=== PATIENT | female | born 1985 | race American Indian/Alaskan Native ===

== ENCOUNTER 2017-12-22 06:50 | Day surgery (SDC) | payer BC, OTHER ==
[~2017-12-22 06:50] MED LIST: MARCAINE-EPI 0.25%-1:200,000 INFILTRATI ONE
[2017-12-22] MEDS ORDERED: DIPRIVAN 10 MG/ML IV ONE (07:20)
[2017-12-22] MEDS ORDERED: DECADRON ONE (07:20)
[2017-12-22] MEDS ORDERED: DILAUDID ONE ×3 (07:20→12:11)
[2017-12-22] MEDS ORDERED: ZOFRAN ONE (07:20)
[2017-12-22] MEDS ORDERED: XYLOCAINE MPF 2% ONE (07:20)
[2017-12-22] MEDS ORDERED: NACL BACTERIOSTATIC INFILTRATI ONE (07:31)
--- NOTE | 2017-12-22 07:35 | Anesthesia Day of Surgery ---
Anesthesia Day of Surgery - Day of Surgery Patient Examined: Yes Patient H&P Reviewed: Yes Patient is NPO: Yes
--- NOTE | 2017-12-22 07:35 | Anesthesia Consultation ---
Anesthesia Consult and Med Hx Date of service: 12/22/17 - Airway Anesthetic Teeth Evaluation: Good ROM Head & Neck: Adequate Mental/Hyoid Distance: Adequate Mallampati Class: Class II Intubation Access Assessment: Good - Pulmonary Exam CTA: Yes - Cardiac Exam Cardiac Exam: No Murmur - Pre-Operative Health Status ASA Pre-Surgery Classification: ASA1, ASA2 Proposed Anesthetic Plan: General - Pulmonary Hx Asthma: Yes (RESCUE INHALER) - Central Nervous System Hx Psychiatric Problems: No - Other Systems Hx Alcohol Use: Yes ([facility]) Hx Substance Use: No
[2017-12-22 07:58] LABS: Basophils % (Auto) 0.7 % (0.0-1.8); Eosinophils # (Auto) 0.1 K/mm3 (0.0-0.4); Eosinophils % (Auto) 1.3 % (0.0-4.3); Hematocrit 42.5 % (30.3-42.9); Hemoglobin 13.9 gm/dl (10.1-14.3); Lymphocytes # (Auto) 1.5 K/mm3 (1.2-5.4); Lymphocytes % (Auto) 27.4 % (13.4-35.0); Mean Corpuscular HGB Conc 33 % (30-34); Mean Corpuscular Hemoglobin 26 pg (28-32); Mean Corpuscular Volume 80 fl (79-97); Monocytes # (Auto) 0.4 K/mm3 (0.0-0.8); Platelet Count 234 K/mm3 (140-440); Red Blood Count 5.31 M/mm3 (3.65-5.03); Red Cell Distribution Width 14.9 % (13.2-15.2)
[2017-12-22] MEDS ORDERED: VERSED IV NR (08:00)
[2017-12-22] MEDS ORDERED: ANCEF/STERILE WATER 2 GM/20 ML IV NR (08:00)
[2017-12-22] MEDS ORDERED: LACTATED RINGERS 1,000 ML IV SCH (08:00)
[2017-12-22] MEDS ORDERED: PEPCID PO NR (08:00)
[2017-12-22] MEDS ORDERED: DILAUDID IV PRN (08:00)
[2017-12-22] MEDS ORDERED: ADRENALIN ONE (08:18)
[2017-12-22] MEDS ORDERED: MARCAINE 0.25% INFILTRATI ONE (08:18)
[2017-12-22] MEDS ORDERED: MARCAINE-EPI 0.25%-1:200,000 INFILTRATI ONE (08:18)
[2017-12-22] MEDS ORDERED: XYLOCAINE 1% 20 mL ONE (08:18)
[2017-12-22] MEDS ORDERED: ZEMURON IV ONE (10:00)
[2017-12-22] MEDS ORDERED: NACL 0.9% 1000 ML 1,000 ML ONE (14:10)
[2017-12-22] MEDS ORDERED: PERCOCET 5/325 PO SCH (15:36)
--- NOTE | 2017-12-22 15:36 | Post Anesthesia Evaluation ---
- Post Anesthesia Evaluation Patient Participated: Yes Airway Patent: Yes Stable Respiratory Function: Yes Nausea/Vomiting: No Temp > 96.8F: Yes Pain Manageable: Yes Adequeate Hydration: Yes Anesthesia Complications: No Block Receding Appropriately: Not Applicable Patient on Ventilator: No
[2017-12-22 17:58] VITALS: BP 121/75
--- NOTE | 2017-12-22 18:34 | Operative Report ---
SERVICE: Plastic Surgery PREOPERATIVE DIAGNOSES: 1. Macromastia. 2. Lipodystrophy. 3. Encounter for cosmetic. POSTOPERATIVE DIAGNOSES: 1. Macromastia. 2. Lipodystrophy. 3. Encounter for cosmetic. PROCEDURES: 1. Bilateral reduction mammoplasty. 2. Abdominoplasty. SURGEON: Fermin Nixon M.D. STUDIO SET UP WORKER: Jono Batres CSA FINDINGS: 720 gm removed from the right breast, 680 gm removed from the left breast. DESCRIPTION OF PROCEDURE: The patient was brought to the operating room and placed on the table in supine position. Following administration of general anesthesia, bilateral breasts were prepped with Betadine solution and draped in the usual sterile manner as was the abdomen. Modified Romero pattern skin markings were incised with a scalpel, deepened through subcutaneous fat and breast tissue using the electrocautery. Inferior dermal pedicle was de-epithelialized. Breast tissue was resected. Skin flaps were elevated in standard manner as was fashioning of an inferior central mound pedicle. Hemostasis was controlled using the electrocautery. Breast tissue was sent to pathology as specimen. Closure was performed over 10 mm NAZARIO drains using interrupted and running subcuticular 2-0 Monocryl sutures. Mastisol, Steri-Strips, and sterile dressings were applied. Attention was then directed to the abdomen. Pfannenstiel surgical incision was made, deepened through subcutaneous fat down to fascia using electrocautery. Abdominal wall skin flap was elevated all the way up to the costal margins bilaterally after circumumbilical and surgical incision was made. Hemostasis was controlled using the electrocautery. Rectus fascia was plicated using a loop #1 Horizontal mattress PDS suture oversewn with a #1 running Prolene suture. Excess pannus was resected. New site created for the umbilicus and skin closure was performed over 310 mm NAZARIO drains using interrupted and running subcuticular 2-0 Monocryl sutures. Mastisol, Steri-Strips, and sterile dressings applied. The patient tolerated the procedure well and returned to recovery room in stable condition. JOB# [id number]
== END 2017-12-22 17:11 | disposition home or self-care (01) ==
LOC: OR 06:50
PROVIDERS: ATTEND Plastic Surgery
DX: Z41.1 Encounter for cosmetic surgery (principal); N62 Hypertrophy of breast; E88.1 Lipodystrophy, not elsewhere classified; J45.909 Unspecified asthma, uncomplicated; E66.9 Obesity, unspecified; Z68.35 Body mass index [BMI] 35.0-35.9, adult; Z72.89 Other problems related to lifestyle
CPT/HCPCS: 15830; 15847; 19318; 36415; 81025; 85025; 88305; J0690; J1100; J1170; J2250; J2405; J2704; J7030; J7120; J0171